=== PATIENT | female | born 2005 | race Two or more races ===

== ENCOUNTER 2024-03-12 00:38 | Emergency (ER) | payer MEDICAID, OTHER ==
[~2024-03-12] VITALS: Ht 157.5 cm; Wt 51.7 kg
[2024-03-12 02:39] VITALS: BP 98/51; PULSE 71; RESP 18; TEMP 98.2; O2SAT 98
[2024-03-12] MEDS ORDERED: ALBU108A5 IN (02:44)
[2024-03-12] MEDS ORDERED: IBUP1TAB4 PO (02:44)
[2024-03-12] MEDS: IBUPROFEN 400 MG TAB PO ONE (02:45)
== END 2024-03-12 02:52 | disposition home or self-care (01) ==
LOC: ER 00:38
DX: R07.81 Pleurodynia (principal); Z32.02 Encounter for pregnancy test, result negative
CPT/HCPCS: 71045; 81025